=== PATIENT | female | born 1960 | race Caucasian/White ===

== ENCOUNTER 2017-03-02 15:31 | Outpatient (CLI) ==
[2016-02-14 18:15] VITALS: BMI 30.2
[2017-03-02 16:00] LABS: BILIRUBIN,URINE Negative (NEGATIVE); KETONES,URINE Trace (NEGATIVE); LEUKOCYTE ESTERASE ,URINE 1+ (NEGATIVE); NITRITE,URINE Negative (NEGATIVE); PROTEIN,URINE Negative (NEGATIVE); URINE, BLOOD Trace-intact (NEGATIVE)
[2017-03-02 16:02] LABS: BASOPHILS # (AUTO) 0.1 K/uL (0-0.2); BASOPHILS % (AUTO) 0.7 % (0.0-3.0); EOSINOPHILS # (AUTO) 0.4 K/ul (0.0-0.7); EOSINOPHILS % (AUTO) 3.4 % (0.0-7.0); HEMATOCRIT 36.7 % (37.0-47.0); HEMOGLOBIN 12.3 g/dl (12.0-16.0); IMMATURE GRANULOCYTE % (AUTO) 0.3 % (0.0-5.0); LYMPHOCYTES # (AUTO) 4.2 K/uL (0.60-3.4); LYMPHOCYTES % (AUTO) 39.8 (10.0-50.0); MEAN CORPUSCULAR HEMOGLOBIN 29.3 pg (27.0-31.0); MEAN CORPUSCULAR HGB CONC 33.5 (31.8-35.4); MEAN CORPUSCULAR VOLUME 87.4 fl (81.0-99.0); MONOCYTES # (AUTO) 0.6 K/uL (0.4-2.0); MONOCYTES % (AUTO) 5.3 (0-10); NEUTROPHILS # (AUTO) 5.3 K/ul (2.0-6.9); NEUTROPHILS % (AUTO) 50.5; PLATELET COUNT 240 10^3/uL (140-440); WHITE BLOOD COUNT 10.56 K/ul (4.6-10.2)
[2017-03-02 16:21] LABS: ALBUMIN 3.8 g/dL (3.4-5.0); ALBUMIN/GLOBULIN RATIO 1.09; BILIRUBIN,TOTAL 0.17 mg/dL (0.00-1.20); BUN/CREATININE RATIO 19.23; CALCIUM 9.4 mg/dL (8.2-10.2); CHOL/HDL RATIO 4.8 (4.5-5.5); CREATININE 0.78 mg/dL (0.60-1.30); TOTAL PROTEIN 7.3 g/dL (6.4-8.2)
[2017-03-02 16:51] LABS: ADD URINE MICROSCOPIC YES
[2017-03-02 16:56] LABS: BACTERIA,URINE TRACE (NOT PRESENT)
== END 2017-03-02 15:32 | disposition home or self-care (01) ==
LOC: LAB 15:31
PROVIDERS: ATTEND General Practice
DX: E78.5 Hyperlipidemia, unspecified (principal); I10 Essential (primary) hypertension; Z79.899 Other long term (current) drug therapy
CPT/HCPCS: 36415; 80053; 80061; 81001; 85025

== ENCOUNTER 2017-03-09 12:51 | Outpatient (CLI) ==
[2016-02-14 18:15] VITALS: BMI 30.2
--- NOTE | 2017-03-11 08:46 | MAMMO ---
EXAM: Bilateral digital screening mammogram History: Screening Comparison: Bilateral mammogram 04/11/2014 Findings: MLO and CC views of bilateral breasts demonstrate scattered fibroglandular breast parench yma. There are no dominant masses, no suspicious microcalcifications and no architectural distortio ns Impression: Stable negative mammogram. Recommend followup routine screening mammography in 1 year. BIRADS 1
== END 2017-03-09 12:52 | disposition home or self-care (01) ==
LOC: RAD 12:51
PROVIDERS: ATTEND General Practice
DX: Z12.31 Encounter for screening mammogram for malignant neoplasm of breast (principal)

== ENCOUNTER 2017-05-17 06:58 | Day surgery (SDC) ==
[2016-02-14 18:15] VITALS: BMI 30.2
[2017-05-17] MEDS ORDERED: LIDOCAINE 1% 20 ML MDV ID ONE (07:52)
[2017-05-17] MEDS ORDERED: VERSED ONE (10:01)
[2017-05-17] MEDS ORDERED: DIPRIVAN 20 ML VIAL IVP ONE (10:01)
[2017-05-17 11:37] VITALS: BP 130/71; TEMP 98.2
--- NOTE | 2017-05-18 10:19 | OP ---
INDICATIONS FOR PROCEDURE: 57-year-old female presents for colonoscopy exam. She has a past history of polyps and a family history of colon polyps in a primary relative. MEDICATIONS: SEE ANESTHESIA NOTES. PROCEDURE: COLONOSCOPY TO THE DESCENDING COLON THEN ABORTED. REPORT: The risks, benefits, alternatives and limitations were discussed in detail with the patient. Informed consent was obtained. After adequate sedation was achieved, a digital rectal exam revealed good tone, no masses. The colonoscope was introduced into the rectum and advanced under direct visual guidance. Unfortunately her prep was suboptimal. As I advanced the scope, I encountered liquid and solid stool. I advanced the scope through the sigmoid which had a poor prep. Once I entered the descending colon the prep was not allowing visualization of at least half of the colon. At this time, it was decided to abort the procedure since the visulization was so poor. I then slowly withdrew the scope. I noted no abnormalities other than diverticulosis but again the prep was poor. The patient tolerated the limited procedure with stable vital signs and pulse oximetry throughout. IMPRESSION: 1. Poor prep not allowing adequate colonoscopy exam. 2. Diverticulosis. RECOMMENDATIONS: Recommend repeat colonoscopy with repeat prep. Will plan for this tomorrow if she is willing and able with additional prep today. Otherwise, it will need to be rescheduled at a later date. CC: DR. AMADA MILLAN
== END 2017-05-17 12:00 | disposition home or self-care (01) ==
LOC: SURG 06:58
PROVIDERS: ATTEND Internal Medicine Gastroenterology
DX: Z09 Encounter for follow-up examination after completed treatment for conditions other than malignant neoplasm (principal); Z86.010 Personal history of colon polyps; Z83.71 Family history of colonic polyps; K57.30 Diverticulosis of large intestine without perforation or abscess without bleeding; Z53.8 Procedure and treatment not carried out for other reasons

== ENCOUNTER 2017-06-28 07:37 | Day surgery (SDC) ==
[2016-02-14 18:15] VITALS: BMI 30.2
[2017-06-28] MEDS ORDERED: DIPRIVAN 20 ML VIAL IVP ONE (09:25)
[2017-06-28] MEDS ORDERED: VERSED ONE (09:25)
[2017-06-28 10:39] VITALS: BP 149/77; TEMP 97.8
--- NOTE | 2017-06-29 09:39 | OP ---
INDICATIONS FOR PROCEDURE: 57-year-old female presents for colonoscopy exam. She has a family history of colon polyps involving her father. MEDICATIONS: SEE ANESTHESIA NOTES. PROCEDURE: COLONOSCOPY. REPORT: The risks, benefits, alternatives and limitations were discussed in detail with the patient. Informed consent was obtained. After adequate sedation was achieved, a digital rectal exam revealed good tone, no masses. The colonoscope was introduced into the rectum and advanced under direct visual guidance to the cecum. The cecum was identified by the appendiceal orifice and IC valve. I then slowly withdrew the scope in a circumferential manner examining the mucosa quite carefully. I looked on the proximal and distal side of folds and flexures as best as possible. The mucosa was unremarkable other than a moderate amount of large and small mouth diverticula scattered throughout the sigmoid area. No other abnormalities were noted including on retroflex view of the anal canal. The prep was good. The withdrawal time was 9 minutes and 9 seconds. The patient tolerated the procedure well with stable vital signs and pulse oximetry throughout. IMPRESSION: 1. DIVERTICULOSIS RECOMMENDATIONS: 1. High fiber diet. 2. Office visit as needed. 3. Consider colonoscopy examination again in 5 years, sooner if there are any signs or symptoms to indicate otherwise. CC: DR. TIM MILLAN
== END 2017-06-28 10:59 | disposition home or self-care (01) ==
LOC: SURG 07:37
PROVIDERS: ATTEND Internal Medicine Gastroenterology
DX: Z09 Encounter for follow-up examination after completed treatment for conditions other than malignant neoplasm (principal); Z86.010 Personal history of colon polyps; K57.30 Diverticulosis of large intestine without perforation or abscess without bleeding

== ENCOUNTER 2017-07-24 12:47 | Emergency (ER) ==
[2017-07-24 12:52] VITALS: BP 154/78; TEMP 98.3; BMI 31.4
--- NOTE | 2017-07-24 13:19 | CT ---
EXAM: CT sinuses/facial bones without contrast HISTORY: Trauma COMPARISON: None TECHNIQUE: Helical axial CT of the facial bones and sinuses were obtained without contrast with janis nal and sagittal reconstructions. FINDINGS: There is no acute osseous abnormality. Specifically the orbits are intact with no evidenc e for inferior or medial blowout fracture. The zygomatic arches, pterygoid plates and ac of the m axillary sinuses are intact. There is no nasal or mandibular fracture or dislocation. There are no fluid levels in the paranasal sinuses. The visualized portions of the temporal bones and the intracra nial contents are unremarkable. The cervical spine shows no acute abnormality. There has been prior anterior cervical discectomy and fusion at C4 and C5. There is a anatomic alignment of the construc t. There is degenerative changes noted otherwise. There are no acute soft tissue abnormalities. No d ental fractures are identified. There is a deviated nasal septum to the left with a nasal spur incide ntally noted. There is calcific atherosclerosis of the carotid siphons bilaterally. IMPRESSION: 1. No acute osseous abnormality in the maxillofacial area. 2. Other miscellaneous findings as above.
--- NOTE | 2017-07-24 13:51 | CT ---
EXAM: CT head without contrast HISTORY: Trauma COMPARISON: CT head from 02/27/[address] from today TECHNIQUE: Helical axial CT of the head was performed without contrast. Coronal and sagittal reconstr uctions were performed. FINDINGS: There is no acute intracranial abnormality. There is no hemorrhage, mass, midline shift, abnormal ex tra-axial fluid collection, hydrocephalus or evolving ischemia. The brito-white matter junction is wel l maintained. Brain parenchyma, ventricles and sulci are normal. There are no acute calvarial lesions. Visualized orbits and globes are unremarkable. The mastoid ai r cells demonstrate no significant soft tissue opacification. The visualized paranasal sinuses show n o air-fluid levels. IMPRESSION: Negative head CT
[2017-07-24] MEDS ORDERED: MOTRIN SUSP PO STA (13:57)
--- NOTE | 2017-07-24 13:58 | ED.PDOC ---
General ED Provider: Dr. CAITLYN VEGA-ER Chief Complaint: Head Injury Stated Complaint: a container of vevicki burgers fell onto her forehead and knocked off glasses --did not strike her eye--c/o headache and dizziness Time Seen by Physician: 12:50 Mode of Arrival: Walk-In Information Source: Patient Exam Limitations: No limitations [facility] Nursing and Triage Documentation Reviewed and Agree: Yes Trauma/Injury Complaint Exam - Facial Injury Complaint/Exam Location of Pain: Reports: Right, Eyebrow Mechanism of Injury: Reports: Trauma Onset/Duration: 30 min Symptoms Are: Still present Onset of Pain: Reports: Immediate Initial Severity: Mild Current Severity: Mild Location: Reports: Discrete Character: Reports: Dull, Aching Alleviating: Reports: None Associated Signs and Symptoms: Reports: Headache. Denies: Swelling, Redness, Bruising, Numbness, Tingling, Fever, Polymyalgia, Weight loss, Visual defects, Tinnitus, Loss of consciousness Related Surgical History: Reports: None Facial Findings: Present: Normal findings Differential Diagnoses: Contusion, Fracture Review of Systems - Review Of Systems Constitutional: Reports: No symptoms Eyes: Reports: Blurred vision (but resolved), Pain, Glasses. Denies: Blindness , Vision change, Drainage, Decreased acuity, Foreign body sensation, Inflammation, Photophobia, Previous injury, Shadows, Tunnel vision, Contact lenses Ears, Nose, Mouth, Throat: Reports: No symptoms Respiratory: Reports: No symptoms Cardiac: Reports: No symptoms GI: Reports: No symptoms : Reports: No symptoms Musculoskeletal: Reports: No symptoms Skin: Reports: No symptoms Neurological: Reports: No symptoms Endocrine: Reports: No symptoms Hematologic/Lymphatic: Reports: No symptoms All Other Systems: Reviewed and Negative Past Medical History - Past Medical History Previously Healthy: Yes Endocrine: Reports: Dyslipidemia Cardiovascular: Reports: Hypertension Respiratory: Reports: None Hematological: Reports: None Gastrointestinal: Reports: None Genitourinary: Reports: None Neuro/Psych: Reports: Migraine Musculoskeletal: Reports: Arthritis Cancer: Reports: None Last Menstrual Period: none Other Pertinent Past Medical History: RLS - Surgical History General Surgical History: Reports: Orthopedic (HAND, KNEE, ), Back Surgery - Family History Family History: Reports: None - Social History Smoking Status: Never smoker Hx Substance Use: No Alcohol Screening: Occasionally Physical Exam - Physical Exam Appearance: Well-appearing, No pain distress, Well-nourished Pain Distress: Mild Eyes: JONO, EOMI, Conjunctiva clear ENT: Ears normal, Nose normal, Oropharynx normal Neck: Supple Respiratory: Airway patent Cardiovascular: RRR, Pulses normal, No rub, No murmur GI/: Soft, Nontender, No masses, Bowel sounds normal, No Organomegaly Musculoskeletal: Normal strength, ROM intact, No edema, No calf tenderness Skin: Warm Neurological: Sensation intact, Alert, Oriented Psychiatric: Affect appropriate, Mood appropriate Interpretation - Radiology Interpretation Radiology Interpretation By: Radiologist Radiology Results: Negative Exam Interpreted: CT Scan Re-Evaluation - Re-Evaluation Time of Re-Evaluation: 14:00 Status: Improved (no dizziness or lynch) Vital Signs Stable: Yes Pain Level: 1 Appearance: NAD Lungs: Clear Skin: Warm and Dry Neuro: Alert and Oriented X3 CV: RRR Critical Care Note - Critical Care Note Total Time (mins): 0 Course - Course Orders, Labs, Meds: Orders Category Date Time Status CT HEAD W/O CONTRAST Stat RADS 07/24/17 12:[address] MAXILLOFACIAL W/O CONTRAST Stat RADS 07/24/17 12:53 Completed Vital Signs: Temp Pulse Resp BP Pulse Ox 07/24/17 12:48 98.3 F 79 20 154/78 H 94 L Departure - Departure Time of Disposition: 14:00 Disposition: HOME SELF-CARE Discharge Problem: Injury of head Instructions: Contusion in Adults (ED) Condition: Good Pt referred to PMD for follow-up: Yes Additional Instructions: f/u with your eye doctor tomorrow---motrin for any lynch Allergies/Adverse Reactions: Allergies ropinirole HCl [From Requip] Allergy (Verified 07/24/17 12:52) Palpitations about 1 hour after taking felt dizzy, vomited 3 x, headache, legs shaking, heart palpatations Home Medications: Ambulatory Orders Butalb/Acetaminophen/Caffeine [Esgic Capsule] 1 each PO PRN PRN 02/24/13 Cetirizine HCl [Zyrtec] 10 mg PO DAILY 02/24/13 Verapamil HCl [Verapamil Er Pm] 300 mg PO BEDTIME 04/08/14 Gabapentin 300 mg PO BID tab-cap 01/09/16 Gabapentin 600 mg PO BEDTIME tab-cap 01/09/16 Cyclobenzaprine HCl [Flexeril] 10 mg PO BID PRN 05/17/17 Disposition Discussed With: Patient
== END 2017-07-24 14:10 | disposition home or self-care (01) ==
LOC: ED 12:47
DX: S09.90XA Unspecified injury of head, initial encounter (principal); R51 Headache; R42 Dizziness and giddiness; W20.8XXA Other cause of strike by thrown, projected or falling object, initial encounter
CPT/HCPCS: 99283

== ENCOUNTER 2017-08-23 17:52 | Emergency (ER) | payer OTHER ==
[2017-08-23 18:01] VITALS: BP 164/82; TEMP 99.3; BMI 30.7
--- NOTE | 2017-08-23 18:15 | ED.PDOC ---
General ED Provider: Dr. ALEN URIBE Chief Complaint: Burn Stated Complaint: BURN Time Seen by Physician: 18:00 Mode of Arrival: Walk-In Information Source: Patient Exam Limitations: No limitations [facility] and T[facility] Documentation Reviewed and Agree: Yes Reviewed sepsis parameters & appropriate labs ordered?: Yes (SEE PHOTOS) System Inflammatory Response Syndrome: Not Applicable Sepsis Protocol: For patient's 13 years and over: Temp is 96.8 and below OR 101 and greater Pulse >90 BPM Resp >20/minute Acutely Altered Mental Status Are patient's symptoms suggestive of a new infection, such as: -Pneumonia -Skin, Soft Tissue -Endocarditis -UTI -Bone, Joint Infection -Implantable Device -Acute Abdominal Infection -Wound Infection -Meningitis -Blood Stream Catheter Infection -Unknown System Inflammatory Response Syndrome: Not Applicable Skin Complaint Exam - Skin/Soft Tissue Complaint/Exam Onset/Duration: 1 HR AGO Symptoms Are: Still present Timing: Constant Initial Severity: Mild Current Severity: Mild Character: Reports: Redness Aggravating: Reports: None Alleviating: Reports: None Associated Signs and Symptoms: Denies: Fever, Chills, Itching, Drainage, Bruising, Tenderness, Red streaks, Joint swelling Related History: Reports: Similar episode Related Surgical History: Reports: None Recent Exposure to Others w/Similar Symptoms: No Skin Findings: Present: Normal findings Joint Tenderness Present: No Differential Diagnoses: Other (BURN FIRST DEGREE RIGHT ARM) Review of Systems - Review Of Systems Constitutional: Reports: No symptoms Eyes: Reports: No symptoms Ears, Nose, Mouth, Throat: Reports: No symptoms Respiratory: Reports: No symptoms Cardiac: Reports: No symptoms GI: Reports: No symptoms : Reports: No symptoms Musculoskeletal: Reports: No symptoms Skin: Reports: Other (KIADEN NOTED ON PHOTOS) Neurological: Reports: No symptoms Endocrine: Reports: No symptoms Hematologic/Lymphatic: Reports: No symptoms All Other Systems: Reviewed and Negative Past Medical History - Past Medical History Previously Healthy: Yes Endocrine: Reports: Dyslipidemia Cardiovascular: Reports: Hypertension Respiratory: Reports: None Hematological: Reports: None Gastrointestinal: Reports: None Genitourinary: Reports: None Neuro/Psych: Reports: Migraine Musculoskeletal: Reports: Arthritis Cancer: Reports: None Last Menstrual Period: hysterectomy Other Pertinent Past Medical History: RLS - Surgical History General Surgical History: Reports: Orthopedic (HAND, KNEE, ), Back Surgery - Family History Family History: Reports: None - Social History Smoking Status: Former smoker Hx Substance Use: No Alcohol Screening: Occasionally Physical Exam - Physical Exam Appearance: Well-appearing, No pain distress, Well-nourished Eyes: JONO, EOMI, Conjunctiva clear ENT: Ears normal, Nose normal, Oropharynx normal Respiratory: Airway patent, Breath sounds clear, Breath sounds equal, Respirations nonlabored Cardiovascular: RRR, Pulses normal, No rub, No murmur GI/: Soft, Nontender, No masses, Bowel sounds normal, No Organomegaly Musculoskeletal: Normal strength, ROM intact, No edema, No calf tenderness Skin: Warm, Dry (FIRST DEGREE BURN 10 CM EXTENSOR SIDE RIGHT FORE ARM PLEASE SEE PHOTOS), Normal color Neurological: Sensation intact, Motor intact, Reflexes intact, Cranial nerves intact, Alert, Oriented Psychiatric: Affect appropriate, Mood appropriate Critical Care Note - Critical Care Note Total Time (mins): 0 Course - Course Vital Signs: Temp Pulse Resp BP Pulse Ox 08/23/17 17:53 99.3 F 83 20 164/82 H 93 L Departure - Departure Time of Disposition: 18:39 Disposition: HOME SELF-CARE Discharge Problem: Burn, forearm, first degree Qualifiers: Encounter type: initial encounter Laterality: right Qualified Code(s): T22.111A - Burn of first degree of right forearm, initial encounter Instructions: Superficial Burn (ED) Condition: Good Pt referred to PMD for follow-up: Yes Additional Instructions: Please call your Family Physician as soon as possible to schedule a follow-up appointment. Allergies/Adverse Reactions: Allergies ropinirole HCl [From Requip] Allergy (Verified 08/23/17 18:01) Palpitations about 1 hour after taking felt dizzy, vomited 3 x, headache, legs shaking, heart palpatations Home Medications: Ambulatory Orders Butalb/Acetaminophen/Caffeine [Esgic Capsule] 1 each PO PRN PRN 02/24/13 Cetirizine HCl [Zyrtec] 10 mg PO DAILY 02/24/13 Verapamil HCl [Verapamil Er Pm] 300 mg PO BEDTIME 04/08/14 Gabapentin 300 mg PO BID tab-cap 01/09/16 Gabapentin 600 mg PO BEDTIME tab-cap 01/09/16
[2017-08-23] MEDS ORDERED: SILVADENE CREAM TP STA (18:35)
== END 2017-08-23 19:03 | disposition home or self-care (01) ==
LOC: ED 17:52
DX: T22.111A Burn of first degree of right forearm, initial encounter (principal); X12.XXXA Contact with other hot fluids, initial encounter; Y92.233 Cafeteria of hospital as the place of occurrence of the external cause; Y99.0 Civilian activity done for income or pay
CPT/HCPCS: 99283

== ENCOUNTER 2017-10-28 14:23 | Outpatient (CLI) ==
--- NOTE | 2017-10-28 14:47 | DI ---
EXAM: PA and lateral views of the chest HISTORY: Bronchitis COMPARISON: Chest x-ray 10/27/2015 and numerous priors FINDINGS: The cardiomediastinal silhouette is unchanged. There is no pneumothorax or pleural effusi on. There is no consolidation, nodule or mass. Right calcified granuloma is unchanged. The osseous structures are unremarkable. IMPRESSION: No acute cardiopulmonary process
== END 2017-10-28 14:24 | disposition home or self-care (01) ==
LOC: RAD 14:23
PROVIDERS: ATTEND General Practice
DX: J02.9 Acute pharyngitis, unspecified (principal); R50.9 Fever, unspecified; R05 Cough; R52 Pain, unspecified; J40 Bronchitis, not specified as acute or chronic
CPT/HCPCS: 87651; 87804

== ENCOUNTER 2018-01-19 08:29 | Outpatient (CLI) | END 2018-01-19 08:30 | disposition home or self-care (01) | LOC: LAB 08:29 | PROVIDERS: ATTEND General Practice | DX: E78.5 Hyperlipidemia, unspecified (principal); E04.1 Nontoxic single thyroid nodule; I10 Essential (primary) hypertension; G47.00 Insomnia, unspecified; I25.10 Atherosclerotic heart disease of native coronary artery without angina pectoris; K76.0 Fatty (change of) liver, not elsewhere classified; Z79.899 Other long term (current) drug therapy | CPT/HCPCS: 36415; 80053; 80061; 81001; 84443; 85025; 87086 ==

== ENCOUNTER 2018-02-07 12:11 | Observation (INO) ==
[2018-02-07] MEDS ORDERED: LACTATED RINGERS 1,000 ML IV STA (14:35)
--- NOTE | 2018-02-07 15:38 | CT ---
Exam: CTA chest with intravenous contrast. 3-D MIP reformatted images were provided for interpretat ion. Comparison: CT chest performed 04/11/2014. Chest x-ray performed on 10/28/2017. Reason for exam: Back pain. FINDINGS: No pneumothorax, pleural effusion, or focal consolidation. The aorta is normal in course and caliber without evidence of aneurysmal dilatation or dissection. There is contrast opacification of the aorta, celiac, superior mesenteric, and paired renal arteries. No significant atheromatous disease is seen within the aorta and distal arterial vasculature. There is a small hiatal hernia. Nodular density adjacent to the spleen is presumably a small splenule. The thyroid appears grossly unremarkable. No suspicious appearing osteoblastic or osteolytic lesions. Old granulomas disease is seen in the lung parenchyma. Impression: 1. No evidence of aneurysmal dilatation or dissection in the ascending or thoracic aorta. 2. No acute imaging findings are seen within the thorax. 3. Mild atherosclerotic disease. 4. Small hiatal hernia
[2018-02-07 21:13] VITALS: BMI 33.3
[2018-02-07] MEDS ORDERED: NORCO 7.5-325 PO PRN ×2 (23:00→23:48)
[2018-02-07] MEDS ORDERED: BUTALB PO PRN (23:00)
[2018-02-07] MEDS ORDERED: SENNA PO PRN (23:00)
[2018-02-07] MEDS ORDERED: ACETAMINOPHEN PO PRN (23:00)
[2018-02-07] MEDS ORDERED: FLONASE NAS PRN (23:00)
[2018-02-07] MEDS ORDERED: NORFLEX PO PRN (23:00)
[2018-02-07] MEDS ORDERED: NON-FORMULARY MEDICATION (Ibuprofen [Ibuprofen] 800 MG) PO PRN (23:00)
[2018-02-07] MEDS ORDERED: CAFFEINE PO PRN (23:00)
[2018-02-07] MEDS ORDERED: NON-FORMULARY MEDICATION (Gabapentin [Gabapentin] 600 MG) PO SCH (23:15)
[2018-02-07] MEDS ORDERED: MINOCYCLINE HCL 50 MG PO SCH (23:15)
[2018-02-07] MEDS ORDERED: VERAPAMIL HCL 300 MG PO SCH (23:15)
[2018-02-07] MEDS ORDERED: D5%-1/2NS-KCL 20 MEQ/L IV SOL 1,000 ML IV SCH (23:30)
[2018-02-08] MEDS ORDERED: MOTRIN PO PRN (07:15)
[2018-02-08] MEDS ORDERED: CAFFEINE PO PRN (07:30)
[2018-02-08] MEDS ORDERED: ACETAMINOPHEN PO PRN (07:30)
[2018-02-08] MEDS ORDERED: BUTALB PO PRN (07:30)
[2018-02-08] MEDS ORDERED: D5%-1/2NS-KCL 20 MEQ/L IV SOL 1,000 ML IV SCH (07:30)
[2018-02-08] MEDS ORDERED: NEURONTIN PO SCH ×2 (09:00→21:00)
[2018-02-08] MEDS ORDERED: MINOCYCLINE HCL 50 MG PO SCH (09:00)
[2018-02-08] MEDS ORDERED: ZYRTEC PO SCH (09:00)
[2018-02-08] MEDS ORDERED: NON-FORMULARY MEDICATION (Cetirizine Hcl [Zyrtec] 10 MG) PO SCH (09:00)
[2018-02-08] MEDS: NEURONTIN PO SCH ×2 (11:37→16:50)
--- NOTE | 2018-02-08 11:44 | PCM.CONS ---
CONSULTING PROVIDER: Dr. ISRAEL FONTENOT ATTENDING PROVIDER: Dr. ELSIE DUMONT[facility] DATE OF SERVICE: 02/08/18 SUBJECTIVE: This 57 year old WHITE/ F was hospitalized 02/07/18. The patient is hospitalized with onset of pain in between shoulder blades 2 days ago, sudden onset. The patient had palpitations along with it with some shortness of breath. Workup for pulmonary embolism or dissecting aneurysm is negative so far. EKG shows sinus rhythm. Cardiac markers are negative. REVIEW OF SYSTEMS: CONSTITUTIONAL: No night sweats. No fatigue, malaise, lethargy. No fever or chills. HEENT: Eyes: No visual changes. No eye pain. No eye discharge. ENT: No runny nose. No epistaxis. No sinus pain. No odynophagia. No congestion. RESPIRATORY: No cough, no congestion. No hemoptysis. No shortness of breath. CARDIOVASCULAR: No angina symptoms. No CHF symptoms. No atypical chest pain for CAD. No palpitations. No orthopnea. GASTROINTESTINAL: No abdominal pain. No nausea or vomiting. No diarrhea or constipation. No hematemesis. No hematochezia. GENITOURINARY: No urgency. No frequency. No dysuria. No hematuria. No obstructive symptoms. No discharge. No pain. No significant abnormal bleeding. MUSCULOSKELETAL: No musculoskeletal pain; no joint swelling. NEUROLOGICAL: Awake, alert, oriented to time, place and person. No headache. No neck pain. No syncope. No seizures. No dizziness. PSYCHIATRIC: Not anxious. No depression. No suicidal thoughts. No homicidal thoughts. SKIN: No rash. No lesions. No wounds. ENDOCRINE: No unexplained weight loss. No weight gain. HEMATOLOGIC/LYMPHATIC: No anemia. No purpura. No petechiae. No prolonged or excessive bleeding. No palpable lymph nodes. PHYSICAL EXAMINATION: GENERAL: The patient is awake, alert and oriented, lying in bed in no distress. VITAL SIGNS: Temperature 97.5 F, Pulse 63, Respiratory Rate 16, BP 134/79, Pulse Ox 98% HEENT: Head normocephalic, atraumatic. Eyes: Extraocular muscles are intact. Pupils are equal, round and reactive to light and accommodation. Ears: No lesions. Nose appeared normal. Throat: No exudate or erythema. NECK: Supple. No JVD, no carotid bruit. No lymphadenopathy or thyromegaly. LUNGS: Clear to auscultation. Percussion note normal. Chest symmetrical. HEART: S1, S2, no S3. No murmurs. No cyanosis or clubbing. No ascites. Pulses: Dorsalis pedis and posterior tibial pulses +2 bilaterally. ABDOMEN: Soft. Non-tender. Bowel sounds active. No CVA tenderness. No mass felt. EXTREMITIES: No edema. Full range of motion of all extremities, equal. NEUROLOGIC: No focal deficit. Cranial nerves II through XII are grossly intact. No headache, no double vision or headache. SKIN: Warm and dry. Intact. Turgor-normal. LYMPHATIC: No palpable lymph nodes/no lymphedema. MUSCULOSKELETAL: Normal joints with no swelling. Muscle tone is normal. LAB REVIEW: 02/08/18 04:15 02/08/18 04:15 02/08/18 04:15: WBC 9.73, RBC 4.26, Hgb 12.2, Hct 36.9 L, MCV 86.6, MCH 28.6, MCHC 33.1, RDW Coeff of Jacklyn 13.0, Plt Count 220, Immature Gran % (Auto) 0.3, Neut % (Auto) 49.3, Lymph % (Auto) 42.5, [place] % (Auto) 5.2, Eos % (Auto) 2.2, Baso % (Auto) 0.5, Immature Gran # (Auto) 0.0, Neut # (Auto) 4.8, Lymph # (Auto ) 4.1 H, [place] # (Auto) 0.5, Eos # (Auto) 0.2, Baso # (Auto) 0.1 02/08/18 04:15: Sodium 140, Potassium 3.6, Chloride 107, Carbon Dioxide 24, Anion Gap 12.6, BUN 11, Creatinine 0.62, Estimated GFR (MDRD) 99.00, BUN/ Creatinine Ratio 17.74, Glucose 109, Calcium 9.0, Total Bilirubin 0.3, AST 15, ALT 12, Alkaline Phosphatase 105 H, Troponin I < 0.0100, Total Protein 6.7, Albumin 3.3 L, Globulin 3.4, Albumin/Globulin Ratio 0.97 02/07/18 23:35: Troponin I < 0.0100 02/07/18 12:38: D-Dimer (Manual) 690.01 02/07/18 12:28: Sodium 138, Potassium 4.1, Chloride 105, Carbon Dioxide 25, Anion Gap 12.1, BUN 13, Creatinine 0.68, Estimated GFR (MDRD) 89.00, BUN/ Creatinine Ratio 19.11, Glucose 92, Calcium 9.6, Total Bilirubin 0.4, AST 15, ALT 13, Alkaline Phosphatase 117 H, Total Creatine Kinase 47, Troponin I < 0.0100, Total Protein 7.7, Albumin 3.7, Globulin 4.0, Albumin/Globulin Ratio 0.93 02/07/18 12:28: PT 9.8, INR 0.98, APTT 22.9 L 02/07/18 12:28: WBC 10.72 H, RBC 4.29, Hgb 12.5, Hct 37.3, MCV 86.9, MCH 29.1, MCHC 33.5, RDW Coeff of Jacklyn 13.1, Plt Count 248, Immature Gran % (Auto) 0.3, Neut % (Auto) 58.8, Lymph % (Auto) 34.4, [place] % (Auto) 4.0, Eos % (Auto) 1.8, Baso % (Auto) 0.7, Immature Gran # (Auto) 0.0, Neut # (Auto) 6.3, Lymph # (Auto ) 3.7 H, [place] # (Auto) 0.4, Eos # (Auto) 0.2, Baso # (Auto) 0.1 ASSESSMENT/RECOMMENDATIONS: 1. Pain in between shoulder blades seems noncardiac but will do stress echo and echocardiogram. Several risk factors for coronary artery disease like BMI more than 30, sedentary lifestyle, dyslipidemia and hypertension. Thanks for the referral, will follow. Plan and coordination of the patient's care discussed in the presence of Wire Insulator and Nurse. CONDITION: Stable SCRIBED BY: GOLDIE ANTOINE, Insurance Executive scribed while in presence of service performed by Dr. ISRAEL FONTENOT on 02/08/18 ([id number])
[2018-02-08] MEDS ORDERED: PRAVACHOL PO STA (13:28)
--- NOTE | 2018-02-08 13:34 | STRESSECHO ---
Date of Test: 02/08/18 Ordering Physician: DR. ELSIE DUMONT Occupation: [employer] Reason for Exam: CHEST PAIN, DIZZINESS, BACK/NECK PAIN Smoking History: NO Height: 60" Weight: 170 LBS Current Medications: VERAPAMIL, GABAPENTIN, FLONASE, MINOCIN Physical Findings: S1, S2, S3 Resting EKG: SINUS RHYTHM/ NO ACUTE CHANGES Target Heart Rate: 137/162 S-T SEGMENT STAGE MPH/GRADE HEART RATE BPM BLOOD PRESSURE MMHG RHYTHM +/- ELEVATION DEPRESSION SYMPTOMS,COMMENTS AT REST 77 148/78 SR X NONE 1 1.7/10% 112 150/80 SR X NONE 2 2.5/12% 125 170/80 SR X NONE 3 3.4/14% 4 4.2/16% 5 5.0/18% Immediately After 136 182/90 SR X SHORT OF BREATH Minutes Post Exercise 1:00 100 182/90 SR X SHORT OF BREATH Minutes Post Exercise 4:00 85 150/80 SR X NO COMMENTS DURATION OF EXERCISE: 7:07 MAXIMUM HEART RATE REACHED: 136 BPM REASON FOR TERMINATION: SHORT OF BREATH 97% OXYGEN SATURATION WITH EXERCISE ON ROOM AIR METS: 10.1 INTERPRETATION: 1. NO EVIDENCE OF ISCHEMIA BY ST-T WAVE 2. NO CHEST PAIN OR DISCOMFORT 3. NO BACK SANDOVAL IN LEFT SCAPULA OR NECK PAIN 4. BLOOD PRESSURE RESPONSE: HYPERTENSION WITH EXERCISE AND RESTING NORMAL LEFT VENTRICULAR CONTRACTILITY--RESTING AND POST EXERCISE MTDD
--- NOTE | 2018-02-08 13:36 | ECHOSTRESS ---
Date of Exam: 02/08/18 Ordering Physician: DR. ELSIE DUMONT Reason for Echo: CHEST PAIN, DIZZINESS, STRESS TEST--NO ISCHEMIA M-Mode Normal Adult Results LV Dimensions Normal Adult Results AoV Opening excursions >1.6 LVEDD-base- 3.5-5.8 Ao root dimensions 2.0-3.7 LVESD-base- 3.1-4.6 L. Atrium dimensions 1.9-3.8 Post. Wall thickness 0.8-1.1 IV septum (thickness) 0.7-1.2 Post. Wall excursion 0.72-1.3 Septal motion Systolic motion R. Ventricular cavity 1.5-2.0 LVEF 60% Paradoxical septal wall motion 2-D: NORMAL LEFT VENTRICULAR CONTRACTILITY--RESTING AND POST EXERCISE M-MODE: MV: AV: TV: PV: CHAMBER SIZE: WALL MOTION: NORMAL LEFT VENTRICULAR CONTRACTILITY--RESTING AND POST EXERCISE PERICARDIUM: INTERPRETATION: 1. NORMAL LEFT VENTRICULAR CONTRACTILITY--RESTING AND POST EXERCISE MTDD
--- NOTE | 2018-02-08 13:40 | ECHO2D ---
Date of Exam: 02/08/18 Ordering Physician: DR. ELSIE DUMONT Room # : 110 Reason for Echo: CHEST PAIN, DIZZINESS M-Mode Normal Adult Results LV Dimensions Normal Adult Results AoV Opening excursions >1.6 >1.6 LVEDD-base- 3.5-5.8 4.2 Ao root dimensions 2.0-3.7 3.9 LVESD-base- 3.1-4.6 L. Atrium dimensions 1.9-3.8 4.0 Post. Wall thickness 0.8-1.1 1.2 IV septum (thickness) 0.7-1.2 1.2 Post. Wall excursion 0.72-1.3 NORMAL Septal motion NORMAL Systolic motion R. Ventricular cavity 1.5-2.0 NORMAL LVEF 60% 62% Paradoxical septal wall motion NORMAL 2-D : 2-D M Mode Echocardiogram was performed using apical four chamber and left parasternal long and short axis views. Mitral, tricuspid and aortic valves appear to be normal. Contractility of the left ventricle seems to be normal, so is the cavity size. Left atrial cavity size and aortic root appear to be normal. There is no pericardial effusion. There is no thrombus noted in the left ventricular or left aortic cavity. No mitral valve prolapse noted. M-MODE: MV: NORMAL AV: NORMAL TV: NORMAL PV: CHAMBER SIZE: BORDERLINE LEFT ATRIAL CAVITY ENLARGED WALL MOTION: NORMAL PERICARDIUM: NORMAL INTERPRETATION: 1. BORDERLINE LEFT VENTRICULAR HYPERTROPHY WITH BORDERLINE LEFT ATRIAL CAVITY ENLARGEMENT 2. NORMAL VALVES 3. NORMAL LEFT VENTRICULAR CONTRACTILITY MTDD
[2018-02-08] MEDS ORDERED: COZAAR PO ONE (14:00)
[2018-02-08] MEDS ORDERED: ASPIRIN EC PO SCH (14:00)
[2018-02-08 14:03] VITALS: BP 140/84; TEMP 97.7
[2018-02-08] MEDS ORDERED: VERAPAMIL HCL 300 MG PO SCH (21:00)
[2018-02-09] MEDS ORDERED: NEURONTIN PO SCH (09:00)
--- NOTE | 2018-02-09 09:53 | SSS ---
DATE OF SERVICE: Admitted 02/07/18-Discharged 02/08/2018 CHIEF COMPLAINT: Pain across the upper chest, posterior. SOURCE OF HISTORY: Patient, reliability good. HISTORY OF PRESENT ILLNESS: The patient claimed to experience pain, dull ache in the upper posterior chest at the midline radiating to both left and right sides about 10:30 in the evening of 02/06/2018. 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 The pain was not accompanied by diaphoresis or nausea. The pain was constant and Tuesday at noon time on 02/07/2018 the patient was at work and did talk to me about the pain and she wanted to see me. The pain was in the midline or the upper chest about T2, 3 and 4 and maybe towards 5. This radiates to left and right at the same level. I did advise the patient to go to the emergency room and I would examine her and that was accomplished. I was concerned that this patient may have some muscular problems maybe beginning dissection causing the pain. The patient at the time when she was experiencing pain at night about 10: 30 in the evening and also had experienced lightheadedness and dizziness soon after the initiation of the pain. Almost stubbled to the floor that night trying to get to the bathroom. She also slept in a semi-upright position through the night. Her labs in the emergency room showed minimal leukocytosis 10,720, hemoglobin and hematocrit within normal. Coagulation profile normal. Alkaline phosphatase slightly elevated at 117, E GFR 89, Troponin normal, D- Dimer slightly elevated at 690.01. CTA of the thoracic blood vessels and also PE was accomplished and there was no dissection or no aneurysm and no pulmonary emboli. The patient was advised of these findings. I did advise the patient admission under observation to complete the testing tomorrow by the dynamiter. I did inform her then that maybe the pain could be cardiac in origin. The patient was then admitted. PAST PERSONAL HISTORY: The patient had previous melanoma left arm. History of migraines, history of diverticulitis, history of restless leg syndrome and bilateral foot neuropathy. The reason for the neuropathy unknown. This patient had previous total abdominal hysterectomy. The patient was diagnosed to have a herniated disc in 2002. Colonoscopy June 2017. III, Para II, AB 1. The patient also had lumbar surgery, as well as sinus surgery. Surgery of bilateral carpal tunnel. The patient had rectal examination June 2017. FAMILY HISTORY: Father had hypertension, coronary artery disease with myocardial infarction. Mother had ovarian carcinoma. SOCIAL HISTORY: The patient is and works at [employer] in the [employer] department. She stopped smoking years ago and denies any drug abuse or history of it. MEDICATIONS: Prior to this admission Zyrtec 10 mg daily Esgic capsule for headache one every 4-6 hours prn Verapamil 300 mg daily for migraine headaches Hydrocodone/APAP 7.5/325 mg one tablet one to two times a day as needed Gabapentin 600 mg at bedtime and 300 mg every morning and 300 mg at lunch and supper time. Ibuprofen 800 mg tablet twice a day as needed Norflex 100 mg tablet at bedtime prn Senokot 17.2 mg twice a day as needed Flonase 1-2 sprays to each nostril, once or twice a day ALLERGIES: The patient has reaction to statins, Crestor. She also has some reaction to Ropinirole. REVIEW OF SYSTEMS: CONSTITUTIONAL: The patient had no fever or chills, but somewhat fatigued since she did not sleep last night and was sleeping in a semi-recumbent position. She had the pain through the night and to presentation to the emergency room. 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 This patient does have history of headaches, but does not have any headache now. No history of syncope or seizure disorder, although the patient did have some lightheadedness inially ang then followed by dizziness. VISUAL: Denies ay double vision, blurred vision or transient loss of vision. AUDITORY: Normal. RESPIRATORY: No cough, no shortness of breath. CARDIOVASCULAR: The patient has no anterior chest pain, but does have pain in the posterior back about T2 to T5 level radiating to both sides of the upper posterior chest. No shortness of breath with usual exertion. GASTROINTESTINAL: No nausea or vomiting or diarrhea or abdominal pain GENITOURINARY: Denies any pain or frequency of urination. MUSCULOSKELETAL: The patient has chronic back pain, failed back surgery in the lumbar area. Denies any significant joint pains, ENDOCRINE: Negative. INTEGUMENT: No rash or pruritus. HEMATOLOGIC: No history of prolonged bleeding. PSYCHIATRIC: Affect is normal. 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 The patient was evaluated from the emergency room. She is not dyspneic , nor tachypneic and no cyanosis. VITAL SIGNS: On admission to the floor showed a temperature of 97.7, pulse 85, blood pressure 120/901. Respiratory rate 16, oxygen saturation 97 at room air. She is 170 pounds, 6.6 ounces. Her blood pressure in the emergency room was 161/65. HEAD: Unremarkable. Scalp with no active dermatitis. FACE: Symmetrical and equal with no facial weakness. There is no redness. No remarkable tenderness to palpation under pressure in the frontal or maxillary sinus gerry. EYES: Pupils equal/reactive to light and rounded about 3 mm in size. Conjunctivae slightly pale. Sclerae not icteric. MOUTH: Unremarkable. THROAT: No inflammation, tumors or exudate. NECK: No masses. No bruit. No tenderness. No rigidity. CHEST: Symmetrical and equal with good expansion with no remarkable tenderness. LUNGS: Breath sounds are heard in both sides. No rales or wheezing. HEART: Audible and regular with good tones. No murmurs. ABDOMEN: Soft with no remarkable tenderness. Bowel sounds are active. No masses palpable. EXTERNAL GENITALIA: Unremarkable. PELVIC AND RECTAL: Not performed. LOWER EXTREMITIES: Symmetrical and equal with no significant pedal edema. UPPER EXTREMITIES: Symmetrical and equal. ASSESSMENT: 1. UPPER POSTERIOR CHEST PAIN, MIDLINE, ETIOLOGY UNDETERMINED, RULE OUT OR RULE IN ANGINA, MAYBE UNSTABLE. 2. HISTORY OF MIGRAINE HEADACHES ON MEDICATION 3. HISTORY OF LUMBAR DISC HERNIATION, STATUS POST SURGERY-FAILED BACK SURGERY SYNDROME HOSPITAL COURSE: The patient while in the hospital was stable. Her temperature was normal and pulse remained within normal range. Blood pressure is either normal or in the slighted above the normal level. Respiratory rate was between 16 to 18 and oxygen saturation was between 97 to 98. The patient had a stress test, plus echocardiogram and the dynamiter did call me and told me that the stress test was negative for ischemia and no chest pain. The blood pressure rise was a little bit higher than expected. The echocardiogram is essentially normal. He recommended or advised an Aspirin 81 mg daily and statin, Pravachol 40 mg daily in the evening and Losartan. I proceeded to order all of these things, but the Losartan was 50 mg twice a day. The CBC done today shows normal CBC, except for slightly elevated lymphocytes 4.1, CMP essentially unremarkable, except for the alkaline phosphatase, which is slightly elevated at 105 from 117 yesterday and the rest are unremarkable. The patient denied any pain in both leg and there is no tenderness in the calf muscles and Davison's sign was negative, so no Doppler studies were done. The patient this morning had been free of pain and no recurrence of the pain during the course of the exercise. I am not certain as to the source of the pain. If the patient would have the same or recurrence of the pain that this patient will have again a stress echo, plus cardiac enzymes. The patient at discharge was alert, ambulatory with no chest pain and no shortness of breath. This patient is then discharged today and not to go back to work until about the day after. FINAL DIAGNOSIS: 1. UPPER POSTERIOR CHEST PAIN, ETIOLOGY UNDETERMINED, RESOLVED 2. HYPERTENSIVE RESPONSE WITH EXERCISE 3. HEADACHES, MIGRAINE 4. DYSLIPIDEMIA 5. 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
--- NOTE | 2018-02-09 10:20 | ER ---
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 last night. There had been no obvious injuries. The patient does the same work most of the time. She could not remember any triggering injuries. The pain was a dull ache about T2, T3 and T4 level and spreading across the upper chest posteriorly. This was no accompanied by nausea , diarrhea or diaphoreses. The patient, however, did experience lightheadedness and dizziness soon after the pain. She slept semi-recumbent through the night. She did get up once and almost fell to the ground because of the pain in the posterior chest. The patient was brought to the emergency room because of the possibility of a dissecting aneurysm, although there had been no aneurysmal dilatation diagnosed previously. The patient on initial examination was alert with no diaphoresis and no dizziness and oriented and responsive. She has movement of all extremities. She wasn't pale. She was not dyspneic and not tachycardiac. LUNGS: Clear to auscultation. HEART: Audible and regular with good tones. ABDOMEN: Nontender. VITAL SIGNS: The patient's vital signs on entry at the emergency room showed a temperature of 97.8, pulse rate of 70, respiratory rate 20, oxygen saturation 97 at room air. Blood pressure 161/65. LOWER EXTREMITIES: The patient had no tenderness in the calf muscles. The patient did experience chilly sensations before the CTA and warm sensation and diaphoresis after the CTA was done. LABS: The patient's CBC and chemistry were unremarkable, except for slightly elevated D-Dimer at 600 plus. The patient at 5:15 p.m. is alert, oriented times four. She was still with dizziness. She also mentioned that she woke up last night with a very rapid heat rate. Because of the tachycardia during the night, the posterior chest pain and also the dizziness that this patient will be admitted to observation and a stress echocardiogram will be ordered for tomorrow. Initial Troponin was normal. I would have to call the radiologist would read the CT scan to see if there was any possibility of a pulmonary emboli during the course of the CTA. There was no mention. The phone number for Dr. Aubrey Chanel is [phone]. The patient was agreeable to the admission. YANA
--- NOTE | 2018-02-09 11:25 | CONS ---
DATE OF CONSULTATION: 02/08/18 REASON FOR CONSULTATION: Chest pain especially intrascapular area, sudden onset admitted yesterday. HISTORY OF PRESENT ILLNESS: The patient has several risk factors for coronary artery disease like hypertension, dyslipidemia, BMI of 30, sedentary lifestyle, family history - father had an MS. REVIEW OF SYSTEMS: (At time of my examination) CONSTITUTIONAL: No night sweats. No fatigue, malaise, lethargy. No fever or chills. HEENT: Eyes: No visual changes. No eye pain. No eye discharge. ENT: No sinus drainage. No epistaxis. No sinus pain. No sore throat. No odynophagia. No ear pain. No congestion. RESPIRATORY: No cough, no congestion. No hemoptysis. No shortness of breath. CARDIOVASCULAR: No angina symptoms. No CHF symptoms. No atypical chest pain for CAD. No palpitations. No orthopnea. GASTROINTESTINAL: No abdominal pain. No nausea or vomiting. No diarrhea or constipation. No hematemesis. No hematochezia. GENITOURINARY: No urgency. No frequency. No dysuria. No hematuria. No obstructive symptoms. No discharge. No pain. No significant abnormal bleeding. MUSCULOSKELETAL: No musculoskeletal pain. No joint swelling. NEUROLOGICAL: No headache. No neck pain. No syncope. No seizures. No dizziness. PSYCHIATRIC: Not anxious. No depression. No suicidal thoughts. No homicidal thoughts. SKIN: No rash. No lesions. No wounds. ENDOCRINE: No unexplained weight loss. No weight gain. HEMATOLOGIC/LYMPHATIC: No anemia. No purpura. No petechiae. No prolonged or excessive bleeding. No palpable lymph nodes. MEDICATIONS: (HOME) Zyrtec Esgic Verapamil ER Hydrocodone/Acetaminophen Gabapentin Ibuprofen Norflex Senokot Flonase Gabapentin ALLERGIES: [id number] REDUCTASE INHIBITOR, ROPINIROLE PAST MEDICAL HISTORY: Melanoma left arm History of migraines History of diverticulitis History of restless leg syndrome Bilateral foot neuropathy PAST SURGICAL HISTORY: Abdominal hysterectomy Colonoscopy 2017 Lumbar surgery Sinus surgery Bilateral Carpal tunnel surgery SOCIAL/PERSONAL/FAMILY HISTORY: ; works at [employer] in [employer]; nonsmoker - quitting years ago; no illicit drug use. Family history: Father hypertension, CAD and MS. Mother - ovarian carcinoma. PHYSICAL EXAMINATION: VITAL SIGNS: Temperature 97.5, pulse 63, respiratory rate 16, BP 134/79, pulse ox 98%. HEENT: Head normocephalic, atraumatic. Eyes: Extraocular muscles are intact. Pupils are equal, round and reactive to light and accommodation. Ears: No lesions. Nose appeared normal. Throat: No exudate or erythema. NECK: Supple. No JVD, no carotid bruit. No lymphadenopathy or thyromegaly. LUNGS: Clear to auscultation. Percussion note normal. Chest symmetrical. HEART: S1, S2, no S3. No murmurs. No cyanosis or clubbing. No ascites. Pulses: Dorsalis pedis and posterior tibial pulses +1 to +2 both sides. ABDOMEN: Soft. Nontender. Bowel sounds active. No CVA tenderness. No mass felt. EXTREMITIES: No edema. Full range of motion of all extremities, equal. NEUROLOGIC: No focal deficit. Cranial nerves II through XII are grossly intact. No headache, no double vision or headache. SKIN: Not dry. Intact. Turgor - normal. LYMPHATIC: No palpable lymph nodes/no lymphedema. MUSCULOSKELETAL: Normal joints with no swelling. Muscle tone is normal. EKG sinus rhythm, no acute changes. Cardiac markers negative. The patient is nonsmoker. History of having high cholesterol. The patient was on Crestor, was discontinued because of leg cramps. She hasn't been on any statins for awhile. ASSESSMENT: 1. BACK PAIN, INTRASCAPULAR AREA 2. CHEST PAIN, ETIOLOGY UNKNOWN 3. HISTORY OF HYPERTENSION 4. DYSLIPIDEMIA 5. BMI 33. PLAN: The patient had echo done which showed borderline LVH with borderline LA cavity enlargement. Normal LV contractility. Stress test showed no ischemia, good exercise tolerance on Bc protocol with 7 min of walking with mets of 10.1, no ST-T wave changed noted. No back pain. No neck pain. No chest pain. No arrhythmias noted. Blood pressure systolic went up to 190. Conclusion was patient's back pain was noncardiac. RECOMMENDATIONS: 1. Cozaar to be added 50 mg p.o. daily as anti-hypertensive along with Verapamil, coated aspirin. 2. Non HDL goal 100. 3. Pravachol 40 mg p.o. daily. 4. The patient is strongly advised to followup with primary M.D. 5. All the risk factors for coronary artery disease discussed. The patient is very receptive. 6. Counseling for weight loss done. [facility]
== END 2018-02-08 17:10 | disposition home or self-care (01) ==
LOC: ED 12:11 → MEDSURG A 19:11
PROVIDERS: ADMIT General Practice; ATTEND General Practice
DX: R07.89 Other chest pain (principal); M54.6 Pain in thoracic spine; R42 Dizziness and giddiness; R00.0 Tachycardia, unspecified; I10 Essential (primary) hypertension; E78.5 Hyperlipidemia, unspecified; G43.909 Migraine, unspecified, not intractable, without status migrainosus; M96.1 Postlaminectomy syndrome, not elsewhere classified; Z68.33 Body mass index [BMI] 33.0-33.9, adult; Z82.49 Family history of ischemic heart disease and other diseases of the circulatory system; Z79.899 Other long term (current) drug therapy
CPT/HCPCS: 36415; 80053; 82550; 84484; 85025; 85379; 85610; 85730; 93005; 93010; 96360; 99284

== ENCOUNTER 2018-02-14 15:28 | Outpatient (CLI) | payer OTHER | END 2018-02-14 15:29 | disposition home or self-care (01) | LOC: FCC-LAB 15:28 | PROVIDERS: ATTEND General Practice | DX: R10.9 Unspecified abdominal pain (principal); R53.83 Other fatigue; Z79.899 Other long term (current) drug therapy | CPT/HCPCS: 36415; 80053; 82150; 82550; 83690; 85025 ==

== ENCOUNTER 2018-06-29 13:46 | Outpatient (CLI) | END 2018-06-29 13:47 | disposition home or self-care (01) | LOC: LAB 13:46 | PROVIDERS: ATTEND General Practice | DX: E78.5 Hyperlipidemia, unspecified (principal); I10 Essential (primary) hypertension; I25.10 Atherosclerotic heart disease of native coronary artery without angina pectoris; K76.0 Fatty (change of) liver, not elsewhere classified; R74.8 Abnormal levels of other serum enzymes; Z79.899 Other long term (current) drug therapy | CPT/HCPCS: 36415; 80053; 80061; 81001; 85025 ==

== ENCOUNTER 2018-08-14 22:49 | Emergency (ER) ==
[2018-08-14 22:49] VITALS: BMI 33.3
[2018-08-14 22:59] VITALS: TEMP 99.6
[2018-08-14] MEDS ORDERED: NORFLEX IM STA (23:12)
[2018-08-14] MEDS ORDERED: TORADOL IM STA (23:12)
[2018-08-14] MEDS ORDERED: DECADRON 4 MG/ML SDV IM STA (23:13)
--- NOTE | 2018-08-14 23:44 | DI ---
EXAM: Three views of the right shoulder. HISTORY: Injury. FINDINGS: The bones are intact with no evidence of fracture. The joint spaces are maintained. There is degenerative spurring along the inferior margin of the acromioclavicular joint. No soft tissue ab normality. Impression: No evidence of fracture. Degenerative change as described.
--- NOTE | 2018-08-14 23:51 | DI ---
EXAM: Cervical spine six views HISTORY: Pain COMPARISON: None. FINDINGS: There is loss of the normal cervical lordosis suggesting paraspinal muscle spasm. Postope rative ACDF is noted at C4-C5.. There is multilevel degenerate disc disease.. There is moderate rig ht neural foraminal encroachment C3-C4, C5-C6 and C6-C7.. The left neural foramen are not well visual ized.. There is likely left neural foraminal encroachment at C5-C6. IMPRESSION: Loss of the normal cervical lordosis suggesting paraspinal muscle spasm. Prior ACDF C4-C5. Neural foraminal narrowing as described.
--- NOTE | 2018-08-15 00:03 | ED.PDOC ---
General ED Provider: Dr. CAITLYN VEGA-ER Chief Complaint: Shoulder Pain/Injury Stated Complaint: yaneth been lifting some boxes and i hurt my neck Time Seen by Physician: 22:55 Mode of Arrival: Walk-In Information Source: Patient Exam Limitations: No limitations Primary Care Provider: [facility] Nursing and Triage Documentation Reviewed and Agree: Yes Does patient meet sepsis criteria?: No System Inflammatory Response Syndrome: Not Applicable Sepsis Protocol: For patient's 13 years and over: Temp is 96.8 and below OR 101 and greater Pulse >90 BPM Resp >20/minute Acutely Altered Mental Status Are patient's symptoms suggestive of a new infection, such as: -Pneumonia -Skin, Soft Tissue -Endocarditis -UTI -Bone, Joint Infection -Implantable Device -Acute Abdominal Infection -Wound Infection -Meningitis -Blood Stream Catheter Infection -Unknown Musculoskeletal Complaint Exam - Neck Pain Complaint/Exam Mechanism of Injury: Reports: No known trauma Onset/Duration: several days Symptoms Are: Still present Timing: Constant Initial Severity: Mild Current Severity: Moderate Location: Reports: Discrete Character: Reports: Dull, Aching, Spasmodic, Burning Aggravating: Reports: Movement Alleviating: Reports: None Associated Signs and Symptoms: Denies: Swelling, Redness, Bruising, Fever, Nuchal rigidity, Weakness, Headache, Paresthesia Related History: Reports: Similar episode Meningitis Risk Factors: Reports: None Cervical Spine Injury Risk Factors: Reports: None Related Surgical History: Reports: None Carotid Bruit Present: No Pain on Passive Flexion: No Positive Kernig's Sign: No ROM Limited In: Present: Flexion, Extension, Right Pain Located at: neck Tenderness: Present: Paraspinal Radiates to: Present: Right arm Focal Weakness: Present: None Focal Sensory Loss: Reports: None Differential Diagnoses: Dystonia, Sprain, Strain Review of Systems - Review Of Systems Constitutional: Reports: No symptoms Eyes: Reports: No symptoms Ears, Nose, Mouth, Throat: Reports: No symptoms Respiratory: Reports: No symptoms Cardiac: Reports: No symptoms GI: Reports: No symptoms : Reports: No symptoms Musculoskeletal: Reports: Muscle pain, Neck pain Skin: Reports: No symptoms Neurological: Reports: No symptoms Endocrine: Reports: No symptoms Hematologic/Lymphatic: Reports: No symptoms All Other Systems: Reviewed and Negative Past Medical History - Past Medical History Previously Healthy: Yes Endocrine: Reports: Dyslipidemia Cardiovascular: Reports: Hypertension Respiratory: Reports: None Hematological: Reports: None Gastrointestinal: Reports: None Genitourinary: Reports: None Neuro/Psych: Reports: Migraine Musculoskeletal: Reports: Arthritis Cancer: Reports: None Last Menstrual Period: hyst Other Pertinent Past Medical History: RLS - Surgical History General Surgical History: Reports: Orthopedic (HAND, KNEE, ), Back Surgery - Family History Family History: Reports: None - Social History Smoking Status: Former smoker Hx Substance Use: No Alcohol Screening: Occasionally - Immunizations Tetanus Shot up to Date: No Physical Exam - Physical Exam Appearance: Well-appearing, No pain distress, Well-nourished Eyes: JONO, EOMI, Conjunctiva clear ENT: Ears normal, Nose normal, Oropharynx normal Neck: Supple Respiratory: Airway patent, Breath sounds clear, Breath sounds equal, Respirations nonlabored Cardiovascular: RRR, Pulses normal, No rub, No murmur GI/: Soft, Nontender, No masses, Bowel sounds normal, No Organomegaly Musculoskeletal: Limited ROM Skin: Warm Neurological: Sensation intact, Motor intact, Reflexes intact, Cranial nerves intact, Alert, Oriented Psychiatric: Affect appropriate, Mood appropriate Interpretation - Radiology Interpretation Radiology Interpretation By: Radiologist Radiology Results: Negative Exam Interpreted: Other Xray Comments: sofia noted - EKG Interpretation Time of EKG #1: 00:06 Rate: Normal Rhythm: Sinus Ectopy: None [place]: NL ST Segment: Normal Interpretation: nsr Critical Care Note - Critical Care Note Total Time (mins): 0 Course - Course Orders, Labs, Meds: Lab Review 08/14/18 23:10 Total Creatine Kinase 20.7 L Troponin I < 0.012 Orders Category Date Time Status EKG-(ED ONLY) Stat CARDIO 08/14/18 23:12 Completed CREATINE KINASE Stat LAB 08/14/18 23:10 Completed TROPONIN I Stat LAB 08/14/18 23:10 Completed Dexamethasone 4 mg/ml Inj [Decadron 4 mg/ml Sdv] MEDS 08/14/18 23:13 Discontinued 4 mg IM ONCE STA Ketorolac Tromethamine [Toradol] MEDS 08/14/18 23:12 Discontinued 60 mg IM ONCE STA Orphenadrine Citrate [Norflex] MEDS 08/14/18 23:12 Discontinued 60 mg IM ONCE STA CERVICAL SPINE, MIN 4 VIEWS Stat RADS 08/14/18 23:11 Completed SHOULDER, RIGHT MIN 2V Stat RADS 08/14/18 23:11 Completed Medications Discontinued Medications Generic Name Dose Route Start Last Admin Trade Name Mehreen PRN Reason Stop Dose Admin Dexamethasone Sodium Phosphate 4 mg 08/14/18 23:13 08/14/18 23:22 Decadron 4 Mg/Ml Sdv IM 08/14/18 23:14 4 mg ONCE STA Administration Ketorolac Tromethamine 60 mg 08/14/18 23:12 08/14/18 23:20 Toradol IM 08/14/18 23:13 60 mg ONCE STA Administration Orphenadrine Citrate 60 mg 08/14/18 23:12 08/14/18 23:22 Norflex IM 08/14/18 23:13 60 mg ONCE STA Administration Vital Signs: Temp Pulse Resp BP Pulse Ox 08/14/18 22:50 99.6 F 79 20 174/90 H 96 Departure - Departure Time of Disposition: 00:04 Disposition: HOME SELF-CARE Discharge Problem: Cervical strain, acute Qualifiers: Encounter type: initial encounter Qualified Code(s): S16.1XXA - Strain of muscle, fascia and tendon at neck level, initial encounter Instructions: Cervical Strain (ED) Condition: Good Pt referred to PMD for follow-up: Yes IPMP verified?: No Additional Instructions: medrol dose pack, norco 7.5mg q 4hrs prn pain #12---f/u with pcp Allergies/Adverse Reactions: Allergies [id number] Reductase Inhibitor Allergy (Intermediate, Verified 08/14/18 23: 01) See comment bubble myalgias ropinirole HCl [From Requip] Allergy (Verified 08/14/18 23:01) Palpitations about 1 hour after taking felt dizzy, vomited 3 x, headache, legs shaking, heart palpatations Home Medications: Ambulatory Orders Butalb/Acetaminophen/Caffeine [Esgic Capsule] 1 each PO Q4-6H PRN 02/24/13 Cetirizine HCl [Zyrtec] 10 mg PO DAILY 02/24/13 Verapamil HCl [Verapamil ER Pm] 300 mg PO BEDTIME 04/08/14 Fluticasone Propionate [Flonase] 2 spray NS DAILY PRN 02/07/18 Sennosides [Senokot] 17.2 mg PO BID PRN 02/07/18 Aspirin [Aspir-Low] 81 mg PO DAILY #100 tablet. 02/08/18 Gabapentin [Neurontin] 300 mg PO DIRECTED 08/14/18 Gabapentin [Neurontin] 600 mg PO BEDTIME 08/14/18 Disposition Discussed With: Patient
[2018-08-15 00:05] VITALS: BP 169/82
== END 2018-08-15 00:10 | disposition home or self-care (01) ==
LOC: ED 22:49
DX: S16.1XXA Strain of muscle, fascia and tendon at neck level, initial encounter (principal); X50.9XXA Other and unspecified overexertion or strenuous movements or postures, initial encounter; I10 Essential (primary) hypertension; E78.5 Hyperlipidemia, unspecified
CPT/HCPCS: 36415; 82550; 84484; 93005; 93010; 96372; 99283

== ENCOUNTER 2019-01-10 10:26 | Outpatient (CLI) ==
--- NOTE | 2019-01-10 11:30 | MAMMO ---
EXAM: Bilateral digital screening mammogram (2-D and 3-D) History: Screening Comparison: Bilateral mammogram 03/09/2017 Findings: MLO and CC views of bilateral breasts demonstrate scattered fibroglandular breast parenchy ma. CAD was reviewed by the radiologist. Tomosynthesis was performed. There are no dominant masses , no suspicious microcalcifications and no architectural distortions Impression: Stable negative mammogram. Recommend followup routine screening mammography in 1 year. BI-RADS 1, negative
== END 2019-01-10 10:27 | disposition home or self-care (01) ==
LOC: RAD 10:26
PROVIDERS: ATTEND General Practice
DX: Z12.31 Encounter for screening mammogram for malignant neoplasm of breast (principal)